=== PATIENT | male | born 2000 | race Caucasian/White ===

== ENCOUNTER 2020-02-28 09:03 | Emergency (ER) | payer MEDICAID ==
[~2020-02-28] VITALS: Ht 180.3 cm; Wt 72.7 kg
[2020-02-28] MEDS ORDERED: ondansetron 4mg rapidly disintigrating tab PO ONE (09:50)
[2020-02-28 09:58] VITALS: BP 108/60
== END 2020-02-28 10:01 ==
LOC: EEVIPCON 09:03 → ER 09:03
DX: S51.812A Laceration without foreign body of left forearm, initial encounter (principal); Y04.8XXA Assault by other bodily force, initial encounter; Y93.89 Activity, other specified; Y92.89 Other specified places as the place of occurrence of the external cause; Y99.8 Other external cause status
CPT/HCPCS: 12005; 99283